=== PATIENT | female | born 1925 | race Caucasian/White ===

== ENCOUNTER 2016-11-09 21:17 | Emergency (ER) | payer MEDICARE, OTHER ==
[~2016-11-09] VITALS: Ht 165.1 cm; Wt 49.9 kg
[2016-11-09] MEDS ORDERED: IV SET PRIMARY 1 EA INFUS.SET MC ONE (21:39)
[2016-11-09] MEDS ORDERED: IV LR 1000 ML 1,000 ML ONE (21:39)
[2016-11-09] MEDS ORDERED: ONDANSETRON HCL/PF 4 MG/2 ML VIAL ONE (21:39)
[2016-11-09 21:44] LABS: BASOPHILS % (AUTO) 0.5 % (0.0-2.0); DIFF TOTAL % 100 %; EOSINOPHILS # (AUTO) 0.2 /CMM (0.0-0.7); EOSINOPHILS % (AUTO) 2.4 % (0.0-6.0); HEMATOCRIT 35 % (33-45); HEMOGLOBIN 11.8 g/dL (11.5-14.8); LYMPHOCYTES # (AUTO) 1.4 /CMM (0.8-4.8); LYMPHOCYTES % (AUTO) 14.5 % (20.0-44.0); MEAN CORPUSCULAR HEMOGLOBIN 30 PG (26.0-33.0); MEAN CORPUSCULAR HGB CONC 34 g/dl (31.0-36.0); MEAN CORPUSCULAR VOLUME 89 fL (82-100); MONOCYTES # (AUTO) 0.5 /CMM (0.1-1.30); MONOCYTES % (AUTO) 4.8 % (2.0-12.0); NEUTROPHILS # (AUTO) 7.7 /CMM (1.8-8.9); NEUTROPHILS % (AUTO) 77.8 % (43.0-81.0); PLATELET COUNT (AUTO) 240 /CMM (150-450); RED BLOOD CELL COUNT(AUTO) 3.94 MIL/uL (4.0-5.2); WHITE BLOOD COUNT (AUTO) 9.8 K/uL (4.3-11.0)
[2016-11-09 21:57] LABS: ALBUMIN 3.5 g/dL (3.4-5.0); BILIRUBIN,DIRECT 0.1 mg/dL (0.0-0.2); BILIRUBIN,TOTAL 0.5 mg/dL (0.2-1.0); CALCIUM, SERUM 9.4 mg/dL (8.5-10.1); CREATININE 1.3 mg/dL (0.6-1.3); INDIRECT BILIRUBIN 0.4 mg/dL (0.0-1.1); POTASSIUM 3.3 mmol/L (3.5-5.1); TOTAL PROTEIN, SERUM 7.2 g/dL (6.4-8.2)
[2016-11-09] MEDS ORDERED: IV LR 1000 ML 1,000 ML IV ONE (22:00)
[2016-11-09] MEDS ORDERED: ONDANSETRON HCL/PF 4 MG/2 ML VIAL IVP ONE (22:00)
[2016-11-09] MEDS ORDERED: POTASSIUM CHLORIDE 20 MEQ TAB.PRT.SR PO ONE ×2 (22:09→22:30)
[2016-11-09 23:35] VITALS: BP 110/65
== END 2016-11-09 23:35 | disposition home or self-care (01) ==
LOC: ER 21:20
DX: R19.7 Diarrhea, unspecified (principal); R11.10 Vomiting, unspecified; I10 Essential (primary) hypertension; Z98.42 Cataract extraction status, left eye
CPT/HCPCS: 36415; 80048; 80076; 83690; 85025; 96361; 96374; 99284; A4606; J2405; J7120; Z7610

== ENCOUNTER 2017-01-28 15:42 | Inpatient (IN) | payer MEDICARE, OTHER ==
[~2017-01-28] VITALS: Ht 162.6 cm; Wt 53.1 kg
--- NOTE | 2017-01-28 15:50 | NUR ---
pt ambulatory to er bed 10. presents w/ ble edema x 4 days. pt denies chest pain or sob. no recent travel. gowned and placed on monitor. tachy block captain. awaiting md lee.
[2017-01-28] MEDS ORDERED: BRIM5DRO2 (15:56)
[2017-01-28] MEDS ORDERED: NABU500T3 (15:56)
[2017-01-28] MEDS ORDERED: ATORVASTATIN 10 MG TABLET (15:56)
[2017-01-28] MEDS ORDERED: TRIA1CAP20 (15:56)
[2017-01-28] MEDS ORDERED: IPRA42SP (15:56)
--- NOTE | 2017-01-28 16:05 | NUR ---
dr roberts at bedside for eval.
--- NOTE | 2017-01-28 16:14 | NUR ---
iv line started blood drawn and sent to lab.
--- NOTE | 2017-01-28 16:17 | NUR ---
radiology at bedside for chest xray.
[2017-01-28 16:19] LABS: BASOPHILS # (AUTO) 0.1 /CMM (0.0-0.2); BASOPHILS % (AUTO) 0.8 % (0.0-2.0); EOSINOPHILS # (AUTO) 0.2 /CMM (0.0-0.7); EOSINOPHILS % (AUTO) 3.1 % (0.0-6.0); HEMATOCRIT 35 % (33-45); HEMOGLOBIN 11.7 g/dL (11.5-14.8); LYMPHOCYTES # (AUTO) 1.4 /CMM (0.8-4.8); LYMPHOCYTES % (AUTO) 21.5 % (20.0-44.0); MEAN CORPUSCULAR HEMOGLOBIN 30 PG (26.0-33.0); MEAN CORPUSCULAR HGB CONC 33 g/dl (31.0-36.0); MEAN CORPUSCULAR VOLUME 90 fL (82-100); MONOCYTES # (AUTO) 0.4 /CMM (0.1-1.30); MONOCYTES % (AUTO) 6.8 % (2.0-12.0); NEUTROPHILS # (AUTO) 4.5 /CMM (1.8-8.9); NEUTROPHILS % (AUTO) 67.8 % (43.0-81.0); PLATELET COUNT (AUTO) 211 /CMM (150-450); RDW COEFFICIENT OF VARIATION 13.5 (11.5-15.0); RED BLOOD CELL COUNT(AUTO) 3.94 MIL/uL (4.0-5.2); WHITE BLOOD COUNT (AUTO) 6.6 K/uL (4.3-11.0)
[2017-01-28 16:29] LABS: CALCIUM, SERUM 9.3 mg/dL (8.5-10.1); CARBON DIOXIDE 34 mmol/L (21-32); CHLORIDE 106 mmol/L (98-107); CREATININE 1.1 mg/dL (0.6-1.3); GLUCOSE 103 mg/dL (74-106); POTASSIUM 3.7 mmol/L (3.5-5.1); SODIUM SERUM 142 mmol/L (136-145); UREA NITROGEN, BLOOD 27 mg/dL (7-18)
[2017-01-28 16:36] LABS: TROPONIN I < 0.017 ng/mL (0.00-0.056)
[2017-01-28 16:41] LABS: B-TYPE NATRIURETIC PEPTIDE 548 PG/ML (0-125)
--- NOTE | 2017-01-28 17:02 | NUR ---
u/s tech at bedside for ble duplex ultrasound.
[2017-01-28 17:22] LABS: D-DIMER 2.26 mg/L(FEU (0.17-0.50); INR 0.96 (0.87-1.13); PROTHROMBIN TIME 10.2 SECS (9.5-12.7)
[2017-01-28] MEDS ORDERED: IPRA42SP NS (17:39)
[2017-01-28] MEDS ORDERED: ATOR10TA PO (17:39)
[2017-01-28] MEDS ORDERED: NABU500T3 PO (17:39)
[2017-01-28] MEDS ORDERED: TRIA1CAP2 PO (17:39)
[2017-01-28] MEDS ORDERED: LATA2.5D7 RIGHTEYE (17:39)
[2017-01-28] MEDS ORDERED: BRIM5DRO2 EACHEYE (17:39)
[2017-01-28] MEDS ORDERED: IV NS 0.9% 250 ML IV ONE (17:45)
[2017-01-28] MEDS ORDERED: IOHEXOL-350 100 ML VIAL IV ONE (17:45)
[2017-01-28] MEDS ORDERED: CT SWABBABLE VALVE TRANS SET 1 EA INFUS.SET MC ONE (17:45)
--- NOTE | 2017-01-28 17:54 | NUR ---
pt to radiology for ct pulmonary angio via [facility].
--- NOTE | 2017-01-28 19:26 | NUR ---
ER MD SPOKE TO DR. BARR REGARDING PT ADMISSION.
--- NOTE | 2017-01-28 19:55 | NUR ---
report given to nghia. pt awaitng transfer to floor.
[2017-01-28] MEDS ORDERED: MAGNESIUM HYDROXIDE 30 ML UDC PO PRN (20:30)
[2017-01-28] MEDS ORDERED: HYDROCODONE/APAP 5/325MG 1 EACH TABLET PO PRN (20:30)
[2017-01-28] MEDS ORDERED: ACETAMINOPHEN 325 MG TABLET PO PRN (20:30)
[2017-01-28] MEDS ORDERED: ONDANSETRON HCL/PF 4 MG/2 ML VIAL IVP PRN (20:30)
[2017-01-28] MEDS ORDERED: Z GUARD REMEDY 2 OZ OINT TP PRN (20:30)
[2017-01-28] MEDS ORDERED: ZOLPIDEM TARTRATE 5 MG TABLET PO PRN (20:30)
[2017-01-28] MEDS ORDERED: MAG HYDROX/AL HYDROX/SIMETH 30 ML UDC PO PRN (20:30)
[2017-01-28] MEDS ORDERED: IV NS 0.9% 1,000 ML IV PRN (20:30)
--- NOTE | 2017-01-28 20:40 | NUR ---
report given to lori. pt awaiting transfer to floor.
[2017-01-28 21:30] VITALS: BP 175/76
[2017-01-28] MEDS ORDERED: hydrALAZINE HCL 25 MG TABLET PO PRN (21:30)
--- NOTE | 2017-01-28 21:30 | NUR ---
MS RN NOTES: PATIENT TRANSFERRED TO MS FLOOR FROM ER VIA GURNEY, PATIENT IS AN 89 YO FEMALE WHO WAS BROUGHT TO ER BY PCG AND RELATIVES FOR BLE SWELLING. PATIENT IS AOX3, ON ROOM AIR, BREATHING EVEN AND UNLABORED. BREATH SOUNDS CLEAR TO AUSCULTATION. PATIENT IS CONTINENT AND AMBULATORY. APPEARS CALM AND IN NO DISTRESS, DENIES ANY PAIN OR SOB AT THIS TIME. PIV ACCESS OVER RFA G 18 INTACT AND PATENT TO FLUSH. PROVIDED FOR COMFORT AND SAFETY. WILL CONT TO MONITOR.
--- NOTE | 2017-01-28 21:45 | NUR ---
RN NOTES: RECEIVED CALL FROM NSG PRINCIPAL LAW CLERK THAT PATIENT WILL BE ADMITTED UNDER TELEMETRY, AND SINCE PT IS TO BE ON AIRBORNE PRECAUTION, PATIENT WILL BE TRANSFERRED TO ICU.
--- NOTE | 2017-01-28 21:55 | NUR ---
RN NOTES: ALBERT FROM ICU CALLED , PATIENT WILL BE BROUGHT TO ICU RM 255. REPORT TO BE GIVEN TO BRITANY MORENO.
[2017-01-28] MEDS ORDERED: LATANOPROST EYE DROP 0.005% 2.5 ML BOTTLE RIGHTEYE SCH (22:00)
--- NOTE | 2017-01-28 22:20 | NUR ---
RN NOTES; PATIENT WAS TRANSFERRED TO ICU RM 255 ON [facility], VIA ACLS PROTOCOL. PATIENT TRANSFERRED IN STABLE CONDITION, ON ROOM AIR, ACCOMPANIED BY RN AND SENIOR CARE PROVIDER. FAMILY INFORMED.
[2017-01-28 23:00] VITALS: BP 160/80
[2017-01-28 23:06] VITALS: BP 162/82
[2017-01-28] MEDS ORDERED: IV SET PRIMARY PUMP SET 1 EA INFUS.SET MC ONE (23:20)
--- NOTE | 2017-01-28 23:50 | NUR ---
PRODUCTION MACHINE TENDER.TRANSFER THE PT FROM MED/SURG VIA BED. PT AWAKE, ALERT, FOLLOW COMMANDS. CELLOPHANE BAG MACHINE OPERATOR SHOWING NSR. IV RT AC 20G. IVF NS 75ML/H. PT ON ROOM AIR. TRANSFER THE PT FOR R/O TB. PT NEED NEGATIVE ROOM PRESSURE. VITALS STABLE. WILL CONTINUE TO MONITOR VITALS.
[2017-01-29] VITALS (17 sets, daily range): BP systolic 113–169; BP diastolic 58–105
--- NOTE | 2017-01-29 03:22 | NUR ---
FIRE MEDIC. AM CARE, ORAL CARE, BED BATH GIVEN. LINEN CHANGED. REMAINING SAME IVF NS 75 ML/H. PT ON ROOM AIR. SAT 98%. NO ACUTE DISTRESS NOTED. HIGH VALUE ASSOCIATE SHOWING NSR. IV RT AC 20G. HOB ELEVATED. AFEBRILE.TURN AND REPOSITION Q2H. WILL CONTINUE TO MONITOR VITALS.
[2017-01-29 04:34] LABS: BASOPHILS # (AUTO) 0.1 /CMM (0.0-0.2); BASOPHILS % (AUTO) 0.8 % (0.0-2.0); EOSINOPHILS # (AUTO) 0.2 /CMM (0.0-0.7); HEMATOCRIT 32 % (33-45); HEMOGLOBIN 10.9 g/dL (11.5-14.8); LYMPHOCYTES # (AUTO) 1.7 /CMM (0.8-4.8); MEAN CORPUSCULAR HEMOGLOBIN 30 PG (26.0-33.0); MEAN CORPUSCULAR HGB CONC 34 g/dl (31.0-36.0); MEAN CORPUSCULAR VOLUME 88 fL (82-100); MONOCYTES # (AUTO) 0.5 /CMM (0.1-1.30); MONOCYTES % (AUTO) 7.2 % (2.0-12.0); NEUTROPHILS # (AUTO) 4.3 /CMM (1.8-8.9); PLATELET COUNT (AUTO) 203 /CMM (150-450); RDW COEFFICIENT OF VARIATION 14.3 (11.5-15.0); RED BLOOD CELL COUNT(AUTO) 3.62 MIL/uL (4.0-5.2); WHITE BLOOD COUNT (AUTO) 6.8 K/uL (4.3-11.0)
[2017-01-29 04:54] LABS: CREATININE 0.9 mg/dL (0.6-1.3); MAGNESIUM 1.3 mg/dL (1.8-2.4)
--- NOTE | 2017-01-29 08:00 | NUR ---
ICU/RN INITIAL NOTES,AM RECEIVED REPORT FROM NIGHT NURSE. PT ALERT, AWAKE, ORIENTED TO PERSON, PLACE AND TIME. PT ON ROOM AIR, NO ACUTE DISTRESS NOTED. PT ON TELE, SINUS. PT CURRENTLY ON NEGATIVE PRESSURE TO R/O TB. ISOLATION OBSERVED AND FOLLOWING PER PROTOCOL. PIV INTACT, NO S/S OF INFECTION OR INFILTRATION NOTED, IV FLUIDS INFUSING ORDERED. ALL NEEDS WILL BE ADDRESSED, SAFETY MEASURES TAKEN, BED IN LOW POSITION, SIDE RAILS UP, CALL LIGHT WITHIN REACH.
[2017-01-29] MEDS: PANTOPRAZOLE 40 MG TABLET.DR PO SCH (08:27)
[2017-01-29] MEDS: ATORVASTATIN 10 MG TABLET PO SCH (08:27)
[2017-01-29] MEDS: NABUMETONE 500 MG TABLET PO SCH (08:28)
[2017-01-29] MEDS ORDERED: Brimonidine Tartrate/Timolol (Combigan Eye Drops) EACHEYE SCH (09:00)
[2017-01-29] MEDS: IPRATROPIUM NEB FS 0.5 MG/2.5 ML AMPUL.NEB NEB SCH ×2 (09:30→21:30)
[2017-01-29] MEDS ORDERED: Magnesium 1GM/D5W 100ML PREMIX 100 ML IV SCH (10:00)
[2017-01-29] MEDS ORDERED: POTASSIUM CHLORIDE 20 MEQ TAB.PRT.SR PO SCH (10:00)
[2017-01-29] MEDS ORDERED: POTASSIUM CL. PREMIX PERIPHER. 50 ML IV SCH (10:30)
[2017-01-29] MEDS ORDERED: TUBERCULIN,PURIF.PROT.DERIV. 5 TU/0.1 ML VIAL ID ONE (11:00)
[2017-01-29] MEDS ORDERED: SECONDARY IV SET 1 EA INFUS.SET MC ONE (11:58)
--- NOTE | 2017-01-29 12:00 | NUR ---
ICU/RN: AT BEDSIDE. PT AND CHART REVIEWED. NEGATIVE ISOLATION DC/D. NEW ORDERS RECEIVED. WILL FOLLOW THROUGH
[2017-01-29] MEDS: POTASSIUM CHLORIDE 20 MEQ TAB.PRT.SR PO SCH ×3 (12:14→15:07)
[2017-01-29] MEDS: Magnesium 1GM/D5W 100ML PREMIX 100 ML IV SCH ×4 (12:14→17:41)
[2017-01-29] MEDS ORDERED: POTASSIUM CHLORIDE 20 MEQ TAB.PRT.SR PO ONE ×2 (12:30→13:30)
--- NOTE | 2017-01-29 12:30 | NUR ---
ICU/RN: PPD DONE ON RIGHT FOREARM. WILL ASSESS 48-72 HOURS.
--- NOTE | 2017-01-29 14:00 | NUR ---
ICU/RN: REPORT ENDORSED TO LAMONT MORENO. PT TRANSFERRED TO [facility]- WITH ACLS GUIDELINE. ALL BELONGINGS SENT WITH PT. ENDORSED TO RN TO COLLECT SPUTUM, WAS UNABLE TO DO SINCE PT WAS EATING LUNCH. ALL NEEDS MET. ALSO ENDORSED TO CALL [facility] AND OBTAIN RECORD PER REQUEST.
--- NOTE | 2017-01-29 14:30 | NUR ---
TELE/VALVER NOTES RECEIVED PATIENT FROM ICU TO ROOM 326-1, BY W/C WITH NURSE (TRINH), IN STABLE CONDITION, ALERT, ORIENTED X 4, WITHOUT SOB, NO CHEST PAIN, ON RA TOLERATING WELL, 98%, C/O MILD HEADACHE. ASSISTED TO THE ROOM, NEEDS MET. FULL BODY ASSESSMENT DONE, IV LINE INTACT RFA, PATENT. PATIENT IS AMBULATORY, CONTINENT. DOCTOR ANDONIAN MADE AWARE, DR. GRIMES'S (PRIMARY)PHONE NUMBER GIVEN, PER FAMILY REQUEST. WILL CONTINUE MAGNESIUM, AND POTASSIUM REPLACEMENT ENDORSED FROM ICU NURSE. PATIENT'S AND FAMILY NEEDS MET IN TIMELY MANNER WITH CALL LIGHT WITHIN EASY
--- NOTE | 2017-01-29 16:46 | NUR ---
TELE/RN NOTES SPUTUM COLLECTED EFFECTIVELY, CALLED LAB FOR BUS DRIVER SUPERVISOR
--- NOTE | 2017-01-29 19:06 | NUR ---
MS/RN CLOSING NOTES PATIENT IS IN THE BED, AWAKE, WITHOUT SOB, NO CHEST PAIN, ON RA TOLERATING WELL 98 %, ABLE TO MOVE IN AND OUT OF THE BED, PATIENT AMBULATES WITH ASSISTANCE. IV LINE INTACT RFA TKO. WAS UNABLE TO CONTACT TO GET PATIENT'S MEDICAL RECORD FROM [facility]/ [facility] , WAS CLOSED. WILL ENDORSE MORNING SHIFT TO F/U TOMORROW. KEPT PATIENT CLEAN, DRY, COMFORTABLE WITH CALL LIGHT WITHIN EASY REACH ALL THE TIME, WILL ENDORSE TO THE AUTOMOTIVE WORKER FOREMAN ACCORDINGLY
[2017-01-29] MEDS: LATANOPROST EYE DROP 0.005% 2.5 ML BOTTLE RIGHTEYE SCH (22:00)
--- NOTE | 2017-01-29 22:29 | NUR ---
eyedrops not available
[2017-01-30 04:00] VITALS: BP 152/84
[2017-01-30] MEDS: PANTOPRAZOLE 40 MG TABLET.DR PO SCH (07:51)
--- NOTE | 2017-01-30 07:54 | NUR ---
AM RN NOTES RECEIVED PT IN STABLE CONDITION, SITTING IN CHAIR, NO SOB OR DISTRESS NOTED, NO PAIN OR DISCOMFORT, QUESTIONABLE CT GUIDED LUNG BIOPSY TODAY PER LAND DEVELOPMENT MANAGER NURSE, NO ORDER FOUND, ACCORDING TO CT/RADIOLOGY DEPARTMENT PT IS NOTE SCHEDULED FOR TODAY, WILL KEEP PT ON NPO FOR NOW TILL F/U WITH .
[2017-01-30 08:20] LABS: BASOPHILS % (AUTO) 0.3 % (0.0-2.0); EOSINOPHILS # (AUTO) 0.2 /CMM (0.0-0.7); EOSINOPHILS % (AUTO) 3.8 % (0.0-6.0); HEMATOCRIT 32 % (33-45); HEMOGLOBIN 10.5 g/dL (11.5-14.8); LYMPHOCYTES # (AUTO) 1.5 /CMM (0.8-4.8); LYMPHOCYTES % (AUTO) 23.4 % (20.0-44.0); MEAN CORPUSCULAR HEMOGLOBIN 30 PG (26.0-33.0); MEAN CORPUSCULAR HGB CONC 33 g/dl (31.0-36.0); MEAN CORPUSCULAR VOLUME 89 fL (82-100); MONOCYTES # (AUTO) 0.5 /CMM (0.1-1.30); MONOCYTES % (AUTO) 7.1 % (2.0-12.0); NEUTROPHILS # (AUTO) 4.2 /CMM (1.8-8.9); NEUTROPHILS % (AUTO) 65.4 % (43.0-81.0); PLATELET COUNT (AUTO) 200 /CMM (150-450); RDW COEFFICIENT OF VARIATION 14.2 (11.5-15.0); RED BLOOD CELL COUNT(AUTO) 3.56 MIL/uL (4.0-5.2); WHITE BLOOD COUNT (AUTO) 6.4 K/uL (4.3-11.0)
[2017-01-30 08:31] LABS: CALCIUM, SERUM 8.7 mg/dL (8.5-10.1); MAGNESIUM 2.2 mg/dL (1.8-2.4); POTASSIUM 3.9 mmol/L (3.5-5.1)
[2017-01-30 08:34] VITALS: BP 140/84
[2017-01-30] MEDS: ATORVASTATIN 10 MG TABLET PO SCH (08:47)
[2017-01-30] MEDS: NABUMETONE 500 MG TABLET PO SCH (09:28)
[2017-01-30] MEDS: IPRATROPIUM NEB FS 0.5 MG/2.5 ML AMPUL.NEB NEB SCH ×2 (09:30→21:29)
[2017-01-30 16:33] VITALS: BP 138/77
[2017-01-30 16:38] VITALS: BP 138/77
[2017-01-30] MEDS: BRIMONIDINE TARTRATE OPHT SOLN 5 ML BOTTLE EACHEYE SCH (16:46)
[2017-01-30] MEDS: TIMOLOL 0.5% SOLN OPHTH 5 ML BOTTLE EACHEYE SCH (16:47)
[2017-01-30 19:00] VITALS: BP 155/84
[2017-01-30] MEDS: LATANOPROST EYE DROP 0.005% 2.5 ML BOTTLE RIGHTEYE SCH (21:21)
--- NOTE | 2017-01-30 21:21 | NUR ---
EYEDROPS ARE NOT AVAILABLE, PHARMACY INFORMED.
--- NOTE | 2017-01-30 23:11 | NUR ---
PT IN STABLE CONDITION, INDORSED TO NEXT SHIFT FOR KELLI.
--- NOTE | 2017-01-30 23:15 | NUR ---
RN NOTES RECEIVED PT AWAKE , SITTING AT THE EDGE OF THE BED.ALERT AND ORIENTED X, WITH PERIODS OF CONFUSION AND FORGETFUL. NO SOB, NOT IN DISTRESS, DENIES ANY PAIN AND DISCOMFORT. IV ACCESS ON RIGHT FOREARM PATENT AND INTACT. CHANGE PATIENT IN TO GOWN. PLACED COMFORTABLY IN BED IN LOWEST POSITION, LOCKED, SIDE RAILS UPX2, WITH CALL LIGHT WITH IN REACH. WILL CONTINUE TO MONITOR PT.
--- NOTE | 2017-01-31 07:11 | NUR ---
RN NOTES PT ASLEEP, HOB SLIGHTLY ELEVATED, BREATHING REGULAR AND UNLABORED, NO SIGNS OF DISTRESS AND DISCOMFORT NOTED. VITAL SIGNS STABLE, AFEBRILE. NO EPISODE OF NAUSEA AND VOMITING NOTED. NO COMPLAIN OF PAIN WITHIN THE SHIFT. SLEPT WELL MOST OF THE SHIFT. ALL NEEDS ATTENDED. WILL ENDORSE TO MORNING RN FOR CONTINUITY OF CARE.
--- NOTE | 2017-01-31 07:48 | NUR ---
ms rn received in bed, awake,alert,oriented x3,nto in any form of distress, respirations even and unlabored,no sob noted, lungs are clear,abdomen soft,positive bowel sounds, denies pain at this time, will monitor patient;s condition.
[2017-01-31 08:12] LABS: BASOPHILS % (AUTO) 0.6 % (0.0-2.0); EOSINOPHILS # (AUTO) 0.3 /CMM (0.0-0.7); EOSINOPHILS % (AUTO) 5.3 % (0.0-6.0); HEMATOCRIT 32 % (33-45); HEMOGLOBIN 10.5 g/dL (11.5-14.8); LYMPHOCYTES # (AUTO) 1.7 /CMM (0.8-4.8); LYMPHOCYTES % (AUTO) 31.2 % (20.0-44.0); MEAN CORPUSCULAR HEMOGLOBIN 30 PG (26.0-33.0); MEAN CORPUSCULAR HGB CONC 33 g/dl (31.0-36.0); MEAN CORPUSCULAR VOLUME 89 fL (82-100); MONOCYTES # (AUTO) 0.5 /CMM (0.1-1.30); MONOCYTES % (AUTO) 8.6 % (2.0-12.0); NEUTROPHILS % (AUTO) 54.3 % (43.0-81.0); PLATELET COUNT (AUTO) 211 /CMM (150-450); RDW COEFFICIENT OF VARIATION 14.1 (11.5-15.0); RED BLOOD CELL COUNT(AUTO) 3.55 MIL/uL (4.0-5.2); WHITE BLOOD COUNT (AUTO) 5.6 K/uL (4.3-11.0)
[2017-01-31 08:22] VITALS: BP 129/72
[2017-01-31 08:35] LABS: CALCIUM, SERUM 8.6 mg/dL (8.5-10.1); POTASSIUM 3.5 mmol/L (3.5-5.1)
[2017-01-31] MEDS: NABUMETONE 500 MG TABLET PO SCH (09:00)
[2017-01-31] MEDS: PANTOPRAZOLE 40 MG TABLET.DR PO SCH (09:00)
--- NOTE | 2017-01-31 09:00 | NUR ---
ms lawton breakfast served,due meds given,tolerated well.
[2017-01-31] MEDS: TIMOLOL 0.5% SOLN OPHTH 5 ML BOTTLE EACHEYE SCH ×2 (09:01→17:04)
[2017-01-31] MEDS: BRIMONIDINE TARTRATE OPHT SOLN 5 ML BOTTLE EACHEYE SCH ×2 (09:01→17:04)
[2017-01-31] MEDS: ATORVASTATIN 10 MG TABLET PO SCH (09:01)
[2017-01-31] MEDS: IPRATROPIUM NEB FS 0.5 MG/2.5 ML AMPUL.NEB NEB SCH ×2 (09:04→11:14)
--- NOTE | 2017-01-31 09:04 | NUR ---
PATIENT IS EATING AT THIS TIME. TREATMENT DEFERRED. NO DISTRESS NOTED. WILL FOLLOW UP LATER.
--- NOTE | 2017-01-31 13:00 | NUR ---
MS RN WAITED FOR [facility] TO FAXED RECORDS, BUT THEY DID NOT.
--- NOTE | 2017-01-31 13:40 | NUR ---
ms leighann was seen by dr.peleg stone/ orders made and carried out.
[2017-01-31 16:48] VITALS: BP 139/77
--- NOTE | 2017-01-31 18:00 | NUR ---
MS RN PATIENT WAS SEEN BY DR. CATALAN, WILL HAVE A LUNG BIOPSY IN AM, WILL ENDORSE TO ELECTROPLATER AUTOMATIC FOR. CONTINUITY OF CARE.NO DISTRESS NOTED.
--- NOTE | 2017-01-31 19:10 | NUR ---
RN NOTES RECEIVED PT AWAKE , ALERT AND ORIENTED X3, WITH PERIODS OF CONFUSION AND FORGETFUL. PT APPEARS COMFORTABLE IN BED, NO SOB, NOT IN DISTRESS, DENIES ANY PAIN AND DISCOMFORT. IV ACCESS ON RIGHT FOREARM PATENT AND INTACT. BED IN LOWEST POSITION, LOCKED, SIDE RAILS UPX2, WITH CALL LIGHT WITH IN REACH. KEPT COMFORTABLE AND ATTENDED. WILL CONTINUE TO MONITOR PT.
[2017-01-31 20:40] VITALS: BP 93/47
[2017-01-31] MEDS: LATANOPROST EYE DROP 0.005% 2.5 ML BOTTLE RIGHTEYE SCH (21:14)
--- NOTE | 2017-01-31 21:47 | NUR ---
RN NOTES RECEIVED REPORT FROM AM RN, PT IS FOR CT GUIDED BIOPSY OF LEFT LINGUAL MASS. CLARIFICATION OF ORDER MADE WITH DR CATALAN, WHO WILL DO THE PROCEDURE. PER DR CATALAN ITS RADIOLOGY WHO WILL DO THE PROCEDURE. WILL PLACE PT NPO AFTER MIDNIGHT FOR THE PROCEDURE. PT MADE AWARE. WILL GET CONSENT TO THE SON. NOTED AND CARRIED OUT.
[2017-02-01] MEDS: IPRATROPIUM NEB FS 0.5 MG/2.5 ML AMPUL.NEB NEB SCH ×2 (00:01→08:30)
--- NOTE | 2017-02-01 06:46 | NUR ---
RN NOTES PT ASLEEP, HOB SLIGHTLY ELEVATED, BREATHING REGULAR AND UNLABORED, NO SIGNS OF DISTRESS AND DISCOMFORT NOTED. VITAL SIGNS STABLE, AFEBRILE. NO EPISODE OF NAUSEA AND VOMITING NOTED. SLEPT WELL, NO COMPLAIN OF PAIN WITHIN THE SHIFT. COUGH AT TIMES, NON PRODUCTIVE, RELIEVED BY COUGH SYRUP. ALL NEEDS ATTENDED. WILL ENDORSE TO MORNING RN FOR CONTINUITY OF CARE. Addendum: 02/01/17 at 0650 by KEELY DONALD RN WRONG ENTRY FOR DIFFERENT PT.
--- NOTE | 2017-02-01 07:00 | NUR ---
RN NOTES CALLED JIM COWAN, SON TO GET CONSENT FOR THE CT GUIDED BIOPSY OF THE LEFT LINGULAR MASS. MSG LEFT, AWAITING FOR RETURN CALL.
--- NOTE | 2017-02-01 07:05 | NUR ---
RN NOTES RECEIVED A CALL FROM JIM COWAN AND GAVE CONSENT FOR THE PROCEDURE, WITNESSED BY LUANA LINO RN.
--- NOTE | 2017-02-01 07:25 | NUR ---
RN NOTES PT ASLEEP IN BED, NO SOB, NOT IN DISTRESS, APPEARS COMFORTABLE IN BED. PT SLEPT WELL, NO COMPLAIN OF PAIN, NO EPISODE OF NAUSEA AND VOMITING WITH IN THE SHIFT. KEPT PT ON NPO FOR TODAY'S PROCEDURE. ALL NEEDS ATTENDED. ENDORSED TO MORNING RN FOR CONTINUITY OF CARE.
[2017-02-01 08:00] VITALS: BP 138/81
[2017-02-01] MEDS: BRIMONIDINE TARTRATE OPHT SOLN 5 ML BOTTLE EACHEYE SCH (09:12)
[2017-02-01] MEDS: TIMOLOL 0.5% SOLN OPHTH 5 ML BOTTLE EACHEYE SCH (09:13)
[2017-02-01] MEDS: NABUMETONE 500 MG TABLET PO SCH (10:09)
[2017-02-01] MEDS: ATORVASTATIN 10 MG TABLET PO SCH (10:09)
[2017-02-01] MEDS: PANTOPRAZOLE 40 MG TABLET.DR PO SCH (10:09)
--- NOTE | 2017-02-01 10:30 | NUR ---
DR.PELEG DR. MORRISON,DR. SALAS IN CT LUNG CANCELLED AND DECIDED TO SEND PT. HOME.SONS CALLING [employer].
--- NOTE | 2017-02-01 11:00 | NUR ---
MDS IN TO VISIT,PT. GOT DRESSED,AND NOW REFUSING DISCHARGE PHOTOS.
[2017-02-01] MEDS ORDERED: LEVO500T15 PO (11:59)
--- NOTE | 2017-02-01 12:55 | NUR ---
DC INSTRUCTIONS GIVEN TO CAREGIVER AND PT. ALL PAPERS SIGNED.HEP LOCK OUT.HAS RX.PT. TAKEN TO LOBBY BY WEB SERVICES DEVELOPER AND FAMILY-INSISTED ON WALKING.AWARE TO SEE DR. CATALAN IN 2-3 WEEKS.
--- NOTE | 2017-02-01 13:10 | NUR ---
SON CALLING IN AND ASKING FOR HOME HEALTH-CALL IN TO AGATHA HOWELL TO ARRANGE.
== END 2017-02-01 13:05 | disposition home health service (06) | DRG 180 ==
LOC: ER 15:51 → TELE1 20:04 → MEDSG1 20:33 → MEDSG2 21:54 → ICU 22:30 → TELE 01-29 13:54 → MED 01-30 12:16
PROVIDERS: ADMIT Internal Medicine; ATTEND Internal Medicine
DX: C34.90 Malignant neoplasm of unspecified part of unspecified bronchus or lung (principal); G93.40 Encephalopathy, unspecified; I50.30 Unspecified diastolic (congestive) heart failure; Q61.2 Polycystic kidney, adult type; J98.11 Atelectasis; I82.891 Chronic embolism and thrombosis of other specified veins; M81.0 Age-related osteoporosis without current pathological fracture; R91.8 Other nonspecific abnormal finding of lung field; E78.5 Hyperlipidemia, unspecified; M47.814 Spondylosis without myelopathy or radiculopathy, thoracic region; E87.6 Hypokalemia; E83.42 Hypomagnesemia; Z87.891 Personal history of nicotine dependence; I11.0 Hypertensive heart disease with heart failure
CPT/HCPCS: 36415; 71010-TC; 76770-TC; 80048-TC; 80061-TC; 83735-TC; 83880; 84100-TC; 84484-TC; 85025-TC; 85378-TC; 85730-TC; 86580-TC; 87070-TC; 87081-TC; 93307-TC; 93970-TC; A4606; J3475; J7030; J7050; Q9967; Z7610